=== PATIENT | female | born 1995 ===

== ENCOUNTER 2016-08-27 14:47 | Inpatient (IN) ==
[2016-08-27] MEDS ORDERED: ONDANSETRON 4 MG/2 ML VIAL IV PRN (19:25)
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
[2016-08-27 20:29] LABS: Basophils % 0.4 % (0.0-0.8); Eosinophils # 0.4 10*3/uL (0.0-0.87); Eosinophils % 6.1 % (0.00-10.9); Hematocrit 37.4 VOL% (35.7-47.0); Immature Granulocytes % 0.1 %; Immature Granulocytes Absolute 0.01 #; Lymphocytes # 2.1 10*3/uL (1.4-4.0); Lymphocytes % 31.5 % (21.3-54.2); Mean Corpuscular HGB Conc 34.8 GM/DL (32-36); Mean Corpuscular Hemoglobin 33 PG (27-34); Mean Corpuscular Volume 93.5 FL (87-102); Mean Platelet Volume 9.6 FL (9.6-12.0); Monocytes # 0.5 10*3/uL (0.11-0.8); Monocytes % 7.3 % (1.7-12.7); Neutrophils # 3.7 10*3/uL (1.4-7.4); Neutrophils % 54.6 % (38.7-73.9); Platelet Count 239 T/CUMM (130-400); Red Cell Distribution Width 12.7 % (9.3-17.3); White Blood Count 6.7 T/CUMM (4-12)
[2016-08-27 21:04] LABS: Calcium 8.2 MG/DL (8.5-10.1); Osmolality,Calculated 275.5 MOS/KG (273-304); Potassium 3.7 MMOL/L (3.5-5.1)
[2016-08-27] MEDS: AMPICILLIN/SULBACTAM 3,000 MG in SODIUM CHLORIDE 0.9% 100 ML IV SCH (21:50)
[2016-08-27] MEDS: MUPIROCIN 2% OINT 22 GM TUBE TOP SCH (21:50)
[2016-08-27] MEDS: MORPHINE 2 MG/1 ML SYRINGE IV PRN (21:52)
[2016-08-28] MEDS: ACETAMINOPHEN 325 MG TABLET PO PRN ×2 (00:50→07:29)
[2016-08-28] MEDS: AMPICILLIN/SULBACTAM 3,000 MG in SODIUM CHLORIDE 0.9% 100 ML IV SCH ×4 (03:21→20:55)
[2016-08-28 07:23] LABS: Basophils % 0.5 % (0.0-0.8); Eosinophils # 0.6 10*3/uL (0.0-0.87); Eosinophils % 8.5 % (0.00-10.9); Hematocrit 38.4 VOL% (35.7-47.0); Hemoglobin 13.3 GM/DL (12.0-16.0); Immature Granulocytes % 0.3 %; Immature Granulocytes Absolute 0.02 #; Lymphocytes # 2.6 10*3/uL (1.4-4.0); Lymphocytes % 40.7 % (21.3-54.2); Mean Corpuscular HGB Conc 34.6 GM/DL (32-36); Mean Corpuscular Hemoglobin 32 PG (27-34); Mean Corpuscular Volume 93.2 FL (87-102); Mean Platelet Volume 9.8 FL (9.6-12.0); Monocytes # 0.4 10*3/uL (0.11-0.8); Monocytes % 5.9 % (1.7-12.7); Neutrophils # 2.8 10*3/uL (1.4-7.4); Neutrophils % 44.1 % (38.7-73.9); Platelet Count 251 T/CUMM (130-400); Red Blood Count 4.12 MC/CUMM (3.8-5.5); Red Cell Distribution Width 12.8 % (9.3-17.3); White Blood Count 6.4 T/CUMM (4-12)
[2016-08-28 07:57] LABS: Calcium 8.3 MG/DL (8.5-10.1); Osmolality,Calculated 276.4 MOS/KG (273-304); Potassium 3.9 MMOL/L (3.5-5.1)
[2016-08-28] MEDS: MORPHINE 2 MG/1 ML SYRINGE IV PRN ×3 (08:39→22:15)
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
[2016-08-28] MEDS: MUPIROCIN 2% OINT 22 GM TUBE TOP SCH ×3 (11:30→20:56)
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
[2016-08-29] MEDS: AMPICILLIN/SULBACTAM 3,000 MG in SODIUM CHLORIDE 0.9% 100 ML IV SCH ×2 (03:14→08:03)
[2016-08-29] MEDS: MORPHINE 2 MG/1 ML SYRINGE IV PRN (08:02)
[2016-08-29] MEDS: MUPIROCIN 2% OINT 22 GM TUBE TOP SCH (08:06)
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
[2016-08-29] MEDS ORDERED: AMOXICILLIN/CLAV 875 MG TABLET PO SCH (11:30)
[2016-08-29 11:55] VITALS: BP 101/47
== END 2016-08-29 14:29 | disposition home or self-care (01) | DRG 566 ==
LOC: N.2E 16:29
PROVIDERS: ADMIT Internal Medicine Infectious Disease; ATTEND Internal Medicine Infectious Disease

== ENCOUNTER 2018-07-02 08:33 | Inpatient (IN) ==
[2018-07-02] MEDS ORDERED: BUTORPHANOL 1 MG/ML VIAL IV PRN (08:44)
[2018-07-02] MEDS ORDERED: LACTATED RINGERS 500 ML IV PRN (08:44)
[2018-07-02] MEDS ORDERED: ONDANSETRON 4 MG/2 ML VIAL IV PRN (08:44)
[2018-07-02] MEDS ORDERED: BUTORPHANOL 2 MG/ML VIAL IV PRN (08:44)
[2018-07-02] MEDS ORDERED: LACTATED RINGERS 1,000 ML IV SCH ×3 (09:00→14:00)
[2018-07-02] MEDS ORDERED: OXYTOCIN/LR 20 UNIT/1,000 ML BAG IV SCH (09:00)
[2018-07-02 09:01] LABS: Basophils % 0.3 % (0.0-0.8); Eosinophils # 0.1 10*3/uL (0.0-0.87); Eosinophils % 0.3 % (0.00-10.9); Hematocrit 32.5 VOL% (35.7-47.0); Hemoglobin 10.2 GM/DL (12.0-16.0); Immature Granulocytes % 0.8 %; Immature Granulocytes Absolute 0.12 #; Lymphocytes # 2.2 10*3/uL (1.4-4.0); Lymphocytes % 14.8 % (21.3-54.2); Mean Corpuscular HGB Conc 31.4 GM/DL (32-36); Mean Corpuscular Volume 95.6 FL (87-102); Mean Platelet Volume 10.6 FL (9.6-12.0); Monocytes % 3.3 % (1.7-12.7); Neutrophils % 80.5 % (38.7-73.9); Platelet Count 273 T/CUMM (130-400); Red Cell Distribution Width 12.8 % (9.3-17.3)
[2018-07-02] MEDS ORDERED: FAMOTIDINE 20 MG/2 ML VIAL IV ONE (09:02)
[2018-07-02] MEDS ORDERED: NALOXONE 0.4 MG/ML VIAL IV PRN (09:02)
[2018-07-02] MEDS ORDERED: diphenhydrAMINE 50 MG/1 ML VIAL IV PRN (09:02)
[2018-07-02] MEDS ORDERED: CITRIC ACID/SODIUM CITRATE 30 ML UDCUP PO ONE (09:02)
[2018-07-02] MEDS ORDERED: LACTATED RINGERS 250 ML IV PRN (09:02)
[2018-07-02] MEDS ORDERED: ePHEDrine 50 MG/ML AMP IV PRN (09:02)
[2018-07-02] MEDS ORDERED: CITRIC ACID/SODIUM CITRATE 30 ML UDCUP ONE (09:06)
[2018-07-02] MEDS ORDERED: fentaNYL 2 MCG/ROPIV 0.2% EPID 0 ML EPIDURAL ONE (09:06)
[2018-07-02] MEDS ORDERED: MORPHINE 10 MG/10 ML VIAL ONE (09:09)
[2018-07-02] MEDS ORDERED: BUPIVACAINE SPINAL 0.75% 2 ML AMP SPINAL ONE (09:09)
[2018-07-02] MEDS ORDERED: miSOPROStol 200 MCG TABLET ONE (09:26)
[2018-07-02] MEDS ORDERED: METHYLERGONOVINE 0.2 MG/1 ML AMP ONE (09:27)
[2018-07-02 09:29] LABS: Albumin 2.1 G/DL (3.4-5.0); Bilirubin,Total 0.8 MG/DL (0.2-1.0); Calcium 7.8 MG/DL (8.5-10.1); Osmolality,Calculated 285.3 MOS/KG (273-304); Total Protein 5.9 G/DL (6.4-8.3); Uric Acid 4.3 MG/DL (2.6-6.0)
[2018-07-02] MEDS ORDERED: fentaNYL 2 MCG/ROPIV 0.2% EPID 100 ML EPIDURAL SCH (09:30)
[2018-07-02 10:16] LABS: HIV Antigen/Antibody Result Nonreactive (Nonreactive); Hepatitis B Surface Ag Quant < 0.10 Index; Hepatitis B Surface Ag Result Negative (Negative); Rubella Antibody IgG 47.9 IU/ML
[2018-07-02 12:34] LABS: Apearance,Urine Slightly Hazy (Clear); Bilirubin,Urine Negative (Negative); Blood, Urine Large mg/dL (Negative); Glucose,Urine (UA) >=500 mg/dL (Negative); Ketones,Urine Negative (Negative); Mucus,Urine Occasional /LPF (Occasional); Nitrite,Urine Negative (Negative); Protein,Urine 30 MG/DL; RBC,Urine 2248 /HPF (0-4); Urine Color Yellow (Yellow)
[2018-07-02] MEDS ORDERED: HYDROCORTISONE 2.5% RECTAL CREAM 30 GM TUBE TOP PRN (12:44)
[2018-07-02] MEDS ORDERED: RHO(D) IMMUNE GLOBULIN 300 MCG SYRINGE IM ONE (12:44)
[2018-07-02] MEDS ORDERED: ACETAMINOPHEN/CODEINE 300-30 MG TABLET PO PRN (12:44)
[2018-07-02] MEDS ORDERED: BISACODYL 10 MG SUPP RECTAL PRN (12:44)
[2018-07-02] MEDS ORDERED: BENZOCAINE 20%/MENTHOL 0.5% SPRAY 56 GM CAN TOP PRN (12:44)
[2018-07-02] MEDS ORDERED: WITCH HAZEL PADS 100/JAR TOP PRN (12:44)
[2018-07-02] MEDS ORDERED: DIPH/TET/ACEL PERT BOOSTER VACCINE 0.5 ML VIAL IM ONE (12:44)
[2018-07-02] MEDS ORDERED: LANOLIN 50% CREAM 0.3 OZ TUBE TOP PRN (12:44)
[2018-07-02] MEDS ORDERED: MEASLES/MUMPS/RUBELLA VACCINE 0.5 ML VIAL SUBCUT ONE (12:44)
[2018-07-02] MEDS ORDERED: ACETAMINOPHEN 325 MG TABLET PO PRN (12:44)
[2018-07-02] MEDS ORDERED: oxyCODONE/ACETAMINOPHEN 5-325 MG TABLET PO PRN (12:44)
[2018-07-02] MEDS: SERTRALINE 50 MG TABLET PO SCH (13:30)
[2018-07-02 13:40] LABS: Barbiturates Screen,Urine Negative (Negative); Benzodiazepines Screen,Urine Negative (Negative); Cannabinoid Screen,Urine Negative (Negative); Opiate Screen,Urine Negative (Negative); Phencyclidine Screen,Urine Negative (Negative)
[2018-07-02] MEDS: POTASSIUM CHLORIDE RIDER 10 MEQ in PREMIX 1 EACH IV PRN ×5 (14:49→18:30)
[2018-07-02] MEDS ORDERED: HYDROCORTISONE 1% CREAM 28 GM TUBE TOP PRN (19:56)
[2018-07-02] MEDS: diphenhydrAMINE CAP 25 MG CAPSULE PO PRN (20:08)
[2018-07-02] MEDS: POTASSIUM CHLORIDE 20 MEQ TABLET PO SCH (20:08)
[2018-07-02] MEDS: DOCUSATE SODIUM 100 MG CAPSULE PO SCH (20:08)
[2018-07-02 22:25] LABS: Calcium 8.1 MG/DL (8.5-10.1); Osmolality,Calculated 273.5 MOS/KG (273-304)
[2018-07-02] MEDS: IBUPROFEN 800 MG TABLET PO PRN (23:07)
[2018-07-02] MEDS: oxyCODONE/ACETAMINOPHEN 5-325 MG TABLET PO PRN (23:07)
[2018-07-03 05:08] LABS: Basophils % 0.2 % (0.0-0.8); Eosinophils # 0.2 10*3/uL (0.0-0.87); Hemoglobin 8.8 GM/DL (12.0-16.0); Immature Granulocytes Absolute 0.05 #; Lymphocytes # 2.3 10*3/uL (1.4-4.0); White Blood Count 9.1 T/CUMM (4-12)
[2018-07-03 06:16] LABS: Eosinophils % 1.8 % (0.00-10.9); Hematocrit 27.4 VOL% (35.7-47.0); Immature Granulocytes % 0.5 %; Lymphocytes % 25.6 % (21.3-54.2); Mean Corpuscular HGB Conc 32.1 GM/DL (32-36); Mean Corpuscular Volume 95.1 FL (87-102); Mean Platelet Volume 10.7 FL (9.6-12.0); Monocytes % 5.3 % (1.7-12.7); Neutrophils % 66.6 % (38.7-73.9); Platelet Count 229 T/CUMM (130-400); Red Blood Count 2.88 MC/CUMM (3.8-5.5)
[2018-07-03] MEDS: DOCUSATE SODIUM 100 MG CAPSULE PO SCH ×2 (09:54→20:00)
[2018-07-03] MEDS: SERTRALINE 50 MG TABLET PO SCH (09:54)
[2018-07-03] MEDS: FERROUS SULFATE 325 MG TABLET PO SCH ×2 (09:54→20:00)
[2018-07-03] MEDS: POTASSIUM CHLORIDE 20 MEQ TABLET PO SCH (12:25)
[2018-07-03] MEDS: IBUPROFEN 800 MG TABLET PO PRN (20:00)
[2018-07-03] MEDS: oxyCODONE/ACETAMINOPHEN 5-325 MG TABLET PO PRN (20:01)
[2018-07-03] MEDS ORDERED: MAGNESIUM HYDROXIDE SUSP 30 ML UDCUP PO PRN (22:26)
[2018-07-03] MEDS: diphenhydrAMINE CAP 25 MG CAPSULE PO PRN (23:55)
[2018-07-04 07:29] VITALS: BP 105/49
[2018-07-04] MEDS: oxyCODONE/ACETAMINOPHEN 5-325 MG TABLET PO PRN (07:47)
[2018-07-04] MEDS: DOCUSATE SODIUM 100 MG CAPSULE PO SCH ×2 (07:48→09:49)
[2018-07-04] MEDS ORDERED: POTASSIUM CHLORIDE 20 MEQ TABLET PO SCH (09:00)
[2018-07-04] MEDS: SERTRALINE 50 MG TABLET PO SCH (09:49)
[2018-07-04] MEDS: FERROUS SULFATE 325 MG TABLET PO SCH (09:50)
== END 2018-07-04 11:05 | disposition home or self-care (01) | DRG 560 ==
LOC: N.LDOUT 08:33 → N.LD 08:35 → N.OB 12:31
PROVIDERS: ADMIT Obstetrics & Gynecology; ATTEND Obstetrics & Gynecology